=== PATIENT | female | born 1980 | race Caucasian/White ===

== ENCOUNTER 2016-08-01 09:14 | Emergency (ER) | payer SELFPAY ==
[2016-08-01 09:27] VITALS: BP 150/98
--- NOTE | 2016-08-01 09:55 | ER Document Report ---
ED Oral Problem - General Chief Complaint: Toothache Stated Complaint: TOOTH PAIN Time seen by provider: 09:51 Mode of Arrival: Ambulatory Information source: Patient Notes: This is a 36-year-old female with a history of diabetes presents to the emergency room with right lower dental pain. Patient states she cracked her tooth several days ago. Patient denies fever. TRAVEL OUTSIDE OF THE [place] IN LAST 30 DAYS: No - HPI Patient complains to provider of: Toothache Onset: Last week Onset: Gradual Quality of pain: Dull Severity: Moderate Pain Level: 2 Context: Fractured tooth Associated symptoms: denies: Chills, Fever Relieved by: Nothing Similar symptoms previously: No Recently seen / treated by doctor/dentist: No - Related Data Allergies/Adverse Reactions: Penicillins Allergy (Verified 08/01/16 09:24) Past Medical History - General Information source: Patient - Social History Smoking Status: Current Every Day Smoker Cigarette use (# per day): Yes - heparin per day Chew tobacco use (# tins/day): No Frequency of alcohol use: None Drug Abuse: None Lives with: Family Family History: Reviewed & Not Pertinent Patient has suicidal ideation: No Patient has homicidal ideation: No - Past Medical History Cardiac Medical History: Reports: None Pulmonary Medical History: Reports: None Denies: Hx Tuberculosis EENT Medical History: Reports: None Neurological Medical History: Denies: Hx Seizures Endocrine Medical History: Reports: Hx Diabetes Mellitus Type 1 Renal/ Medical History: Denies: Hx Peritoneal Dialysis Malignancy Medical History: Reports: None GI Medical History: Reports: None Musculoskeltal Medical History: Reports None Skin Medical History: Reports None Psychiatric Medical History: Reports: Hx Attention Deficit Hyperactivity Disorder, Hx Bipolar Disorder, Hx Depression Denies: Hx Post Traumatic Stress Disorder, Hx Schizophrenia Traumatic Medical History: Reports: Hx Fractures - 5th toe right foot Past Surgical History: Reports: Hx Appendectomy, Hx Tubal Ligation. Denies: Hx Pacemaker - Immunizations Hx Diphtheria, Pertussis, Tetanus Vaccination: Yes Hx Pneumococcal Vaccination: 06/09/08 Review of Systems - Review of Systems Constitutional: denies: Chills, Fever EENT: See HPI Cardiovascular: No symptoms reported Respiratory: No symptoms reported Gastrointestinal: No symptoms reported Genitourinary: No symptoms reported Female Genitourinary: No symptoms reported Musculoskeletal: No symptoms reported Skin: No symptoms reported Hematologic/Lymphatic: No symptoms reported Neurological/Psychological: No symptoms reported Physical Exam - Vital signs Vitals: Temp Pulse Resp BP Pulse Ox 98.5 F 90 18 150/98 H 98 08/01/16 09:26 08/01/16 09:26 08/01/16 09:26 08/01/16 09:26 08/01/16 09:26 - Notes Notes: Physical exam: GENERAL: 36-year-old female, alert and oriented 3, no acute distress. HEAD: Atraumatic, normocephalic. EYES: Pupils equal round and reactive to light, extraocular movements intact, sclera anicteric, conjunctiva are normal. ENT: Patient does have right lower premolar fractured tooth with dental caries. The area is tender. Moist mucous membranes. NECK: Normal range of motion, supple without lymphadenopathy, no tenderness in the submental or submandibular spaces. No evidence of infection lower down in the next spaces. LUNGS: Breath sounds clear to auscultation bilaterally and equal. No wheezes rales or rhonchi. HEART: Regular rate and rhythm without murmurs, rubs or gallops. NEUROLOGICAL: Cranial nerves II through XII grossly intact. Normal speech, normal gait. PSYCH: Normal mood, normal affect. SKIN: Warm, Dry, normal turgor, no rashes or lesions noted. Course - Vital Signs Vital signs: Temp Pulse Resp BP Pulse Ox 98.5 F 90 18 150/98 H 98 08/01/16 09:26 08/01/16 09:26 08/01/16 09:40 08/01/16 09:26 08/01/16 09:26 Discharge - Discharge Clinical Impression: dental caries Condition: Stable Disposition: HOME, SELF-CARE Instructions: Clindamycin ([facility]), Oral Narcotic Medication ([facility]), Toothache ([facility] ) Additional Instructions: Recommendations: Follow-up as planned at [facility] this . Start the antibiotics this morning. Take the pain medicine as needed: See the instruction sheet for narcotics. Return to the emergency room for worsening pain, difficulty swallowing, shortness of breath or any swelling about the mouth or neck. Prescriptions: Clindamycin HCl 300 mg PO Q6 #28 capsule Oxycodone HCl/Acetaminophen [Percocet 5-325 mg Tablet] 1 - 2 tab PO ASDIR PRN # 25 tablet PRN Reason:
== END 2016-08-01 09:55 | disposition home or self-care (01) ==
LOC: ER 09:14
DX: K02.9 Dental caries, unspecified (principal); K08.89 Other specified disorders of teeth and supporting structures; F17.210 Nicotine dependence, cigarettes, uncomplicated
CPT/HCPCS: 99282

== ENCOUNTER 2016-08-15 09:49 | Emergency (ER) | payer SELFPAY ==
--- NOTE | 2016-08-15 10:06 | ER Document Report ---
ED Medical Screen (RME) - General Chief Complaint: Chest Wall Pain Stated Complaint: BODY PAIN Mode of Arrival: Ambulatory Information source: Patient Notes: Patient presents to the emergency department with chest wall pain. Patient reports she hit herself in the chest with bolt cutters on Monday. She reports since that time her chest hurts when she twists her arms. She denies fever vomiting diarrhea but reports some nausea. Patient is a diabetic and reports her sugars have been running high the last Accu-Chek was 182. She has been taking Motrin without relief of symptoms for pain. I have greeted and performed a rapid initial assessment of this patient. A comprehensive ED assessment and evaluation of the patient, analysis of test results and completion of the medical decision making process will be conducted by additional ED providers. TRAVEL OUTSIDE OF THE [place] IN LAST 30 DAYS: No - Related Data Allergies/Adverse Reactions: Penicillins Allergy (Verified 08/15/16 09:59) Past Medical History - Social History Chew tobacco use (# tins/day): No Frequency of alcohol use: None Drug Abuse: None Pulmonary Medical History: Denies: Hx Tuberculosis Neurological Medical History: Denies: Hx Seizures Endocrine Medical History: Reports: Hx Diabetes Mellitus Type 1 Renal/ Medical History: Denies: Hx Peritoneal Dialysis Psychiatric Medical History: Reports: Hx Attention Deficit Hyperactivity Disorder, Hx Bipolar Disorder, Hx Depression Denies: Hx Post Traumatic Stress Disorder, Hx Schizophrenia Traumatic Medical History: Reports: Hx Fractures - 5th toe right foot Past Surgical History: Reports: Hx Appendectomy, Hx Tubal Ligation. Denies: Hx Pacemaker - Immunizations Hx Diphtheria, Pertussis, Tetanus Vaccination: Yes Physical Exam - Vital signs Vitals: Temp Pulse Resp BP Pulse Ox 97.9 F 112 H 18 120/83 100 08/15/16 09:57 08/15/16 09:57 08/15/16 09:57 08/15/16 09:57 08/15/16 09:57 Course - Vital Signs Vital signs: Temp Pulse Resp BP Pulse Ox 97.9 F 112 H 18 120/83 100 08/15/16 10:00 08/15/16 10:00 08/15/16 10:00 08/15/16 10:00 08/15/16 10:00
[2016-08-15] MEDS ORDERED: TRAMADOL HCL 50 MG TABLET PO ONE (11:02)
[2016-08-15] MEDS ORDERED: LIDOCAINE 5% (700 MG) TRANSDERMAL ADH..PATCH TP ONE (11:02)
--- NOTE | 2016-08-15 11:04 | ER Document Report ---
ED General - General Chief Complaint: Chest Wall Pain Stated Complaint: BODY PAIN Mode of Arrival: Ambulatory TRAVEL OUTSIDE OF THE [place] IN LAST 30 DAYS: No - HPI Patient complains to provider of: chest wall pain Notes: Patient coming in for chest wall pain. Patient states approximately one to 2 days ago she was using a cane cutter when it hit her in the chest. Patient states now pain has increased hurts when she moves hurts when she lays flat. Denies any other trauma denies any other fevers chills nausea vomiting diarrhea - Related Data Allergies/Adverse Reactions: Penicillins Allergy (Verified 08/15/16 09:59) Past Medical History - General Information source: Patient - Social History Smoking Status: Unknown if Ever Smoked Chew tobacco use (# tins/day): No Frequency of alcohol use: None Drug Abuse: None Family History: Reviewed & Not Pertinent Patient has suicidal ideation: No Patient has homicidal ideation: No Pulmonary Medical History: Denies: Hx Tuberculosis Neurological Medical History: Denies: Hx Seizures Endocrine Medical History: Reports: Hx Diabetes Mellitus Type 1 Renal/ Medical History: Denies: Hx Peritoneal Dialysis Psychiatric Medical History: Reports: Hx Attention Deficit Hyperactivity Disorder, Hx Bipolar Disorder, Hx Depression Denies: Hx Post Traumatic Stress Disorder, Hx Schizophrenia Traumatic Medical History: Reports: Hx Fractures - 5th toe right foot Past Surgical History: Reports: Hx Appendectomy, Hx Tubal Ligation. Denies: Hx Pacemaker - Immunizations Hx Diphtheria, Pertussis, Tetanus Vaccination: Yes Hx Pneumococcal Vaccination: 06/09/08 Review of Systems - Review of Systems Constitutional: No symptoms reported EENT: No symptoms reported Cardiovascular: Other - Chest wall pain Respiratory: No symptoms reported Gastrointestinal: No symptoms reported Genitourinary: No symptoms reported Female Genitourinary: No symptoms reported Musculoskeletal: No symptoms reported Skin: No symptoms reported Hematologic/Lymphatic: No symptoms reported Neurological/Psychological: No symptoms reported Physical Exam - Vital signs Vitals: Temp Pulse Resp BP Pulse Ox 97.9 F 112 H 18 120/83 100 08/15/16 09:57 08/15/16 09:57 08/15/16 09:57 08/15/16 09:57 08/15/16 09:57 Interpretation: Normal - General General appearance: Appears well, Alert - HEENT Head: Normocephalic, Atraumatic Eyes: Normal Pupils: PERRL - Respiratory Respiratory status: No respiratory distress Chest status: Tender - Tenderness to palpation of the sternum there is no bruising contusions or signs of trauma Breath sounds: Normal Chest palpation: Normal - Cardiovascular Rhythm: Regular Heart sounds: Normal auscultation Murmur: No - Abdominal Inspection: Normal Distension: No distension Bowel sounds: Normal Tenderness: Nontender Organomegaly: No organomegaly - Back Back: Normal, Nontender - Extremities General upper extremity: Normal inspection, Nontender, Normal color, Normal ROM , Normal temperature General lower extremity: Normal inspection, Nontender, Normal color, Normal ROM , Normal temperature, Normal weight bearing. No: Mariana's sign - Neurological Neuro grossly intact: Yes Cognition: Normal Orientation: AAOx4 Lilly Coma Scale Eye Opening: Spontaneous Lilly Coma Scale Verbal: Oriented Rolo Coma Scale Motor: Obeys Commands Rolo Coma Scale Total: 15 Speech: Normal Motor strength normal: LUE, RUE, LLE, RLE Sensory: Normal - Psychological Associated symptoms: Normal affect, Normal mood - Skin Skin Temperature: Warm Skin Moisture: Dry Skin Color: Normal Course - Re-evaluation Re-evalutation: 08/15/16 17:55 Patient has a negative chest x-ray for fracture negative EKG at bedside ultrasound was performed showing no pericardial effusion. More likely patient has a chest wall contusion will be discharged home - Vital Signs Vital signs: Temp Pulse Resp BP Pulse Ox 97.6 F 90 16 115/75 100 08/15/16 11:13 08/15/16 11:13 08/15/16 11:13 08/15/16 11:13 08/15/16 11:13 - Laboratory Laboratory results interpreted by me: 08/15/16 10:05 POC Glucose 176 H Discharge - Discharge Clinical Impression: Chest wall pain Chest wall contusion Qualifiers: Encounter type: initial encounter Laterality: unspecified laterality Qualified Code(s): S20.219A - Contusion of unspecified front wall of thorax, initial encounter Condition: Good Disposition: HOME, SELF-CARE Instructions: Anti-Inflammatory Medication ([facility]), Chest Wall Pain ([facility]), Oral Narcotic Medication ([facility]) Additional Instructions: If you received good pain relief with the Lidoderm patch provide here in the ER you may try [id number] options please discuss this with your pharmacist. Take other pain medication as prescribed. You may also continue to take Tylenol Motrin for pain control. Prescriptions: Tramadol HCl [Ultram 50 mg Tablet] 50 mg PO ASDIR PRN #20 tablet PRN Reason: Forms: Return to Work
[2016-08-15 11:15] VITALS: BP 115/75
--- NOTE | 2016-08-15 13:42 | EKG REPORT ---
SEVERITY:- ABNORMAL ECG - SINUS RHYTHM LEFT ATRIAL ABNORMALITY PROBABLE LEFT VENTRICULAR HYPERTROPHY : Confirmed by: Florentino Crockett 15-Aug-2016 13:41:24
== END 2016-08-15 11:14 | disposition home or self-care (01) ==
LOC: ER 09:49
DX: S20.219A Contusion of unspecified front wall of thorax, initial encounter (principal); R07.89 Other chest pain; W22.8XXA Striking against or struck by other objects, initial encounter; E10.9 Type 1 diabetes mellitus without complications; Z88.0 Allergy status to penicillin; Z98.51 Tubal ligation status
CPT/HCPCS: 71020; 82962; 93005; 93010; 99285

== ENCOUNTER 2016-09-17 09:56 | Emergency (ER) | payer SELFPAY ==
[2016-09-17] MEDS ORDERED: BUPIVACAINE HCL 0.5 % INJ/PF 30 ML SDV INJ ONE (10:24)
[2016-09-17] MEDS ORDERED: NAPROXEN 250 MG TABLET PO ONE (10:25)
[2016-09-17] MEDS ORDERED: HYDROCODONE/ACETAMINOPHEN 5-325 MG TABLET PO ONE (10:25)
--- NOTE | 2016-09-17 11:19 | ER Document Report ---
ED Oral Problem - General Chief Complaint: Toothache Stated Complaint: TOOTH PAIN Mode of Arrival: Ambulatory Information source: Patient Notes: 36-year-old female presents to the emergency department complaining of right lower dental pain and swelling. Patient reports has decayed tooth that has been causing her pain. Reports saw her dentist 5 days ago who placed her on course of clindamycin and is scheduled for dental extraction next week. Reports pain has worsened and has noted some localized swelling to the area over the last 2 days. Reports called her dental provider today but office was closed so came to the ED. Denies fever, drainage, difficulty breathing or swallowing. TRAVEL OUTSIDE OF THE [place] IN LAST 30 DAYS: No - HPI Patient complains to provider of: Swelling of jaw, Toothache Onset: Gradual Quality of pain: Achy Severity: Moderate Pain Level: 4 Swollen jaw/face: Mild Associated symptoms: Dental decay, Toothache. denies: Chills, Difficulty speaking, Drainage, Drooling, Fever, Tongue swelling, Unable to swallow Similar symptoms previously: Yes Recently seen / treated by doctor/dentist: Yes - Related Data Allergies/Adverse Reactions: Penicillins Allergy (Verified 08/15/16 09:59) Past Medical History - General Information source: Patient - Social History Smoking Status: Current Every Day Smoker Frequency of alcohol use: Occasional Drug Abuse: None Lives with: Family Family History: Reviewed & Not Pertinent Patient has suicidal ideation: No Patient has homicidal ideation: No Pulmonary Medical History: Denies: Hx Tuberculosis Neurological Medical History: Denies: Hx Seizures Endocrine Medical History: Reports: Hx Diabetes Mellitus Type 1 Renal/ Medical History: Denies: Hx Peritoneal Dialysis Psychiatric Medical History: Reports: Hx Attention Deficit Hyperactivity Disorder, Hx Bipolar Disorder, Hx Depression Denies: Hx Post Traumatic Stress Disorder, Hx Schizophrenia Traumatic Medical History: Reports: Hx Fractures - 5th toe right foot Past Surgical History: Reports: Hx Appendectomy, Hx Tubal Ligation. Denies: Hx Pacemaker - Immunizations Hx Diphtheria, Pertussis, Tetanus Vaccination: Yes Hx Pneumococcal Vaccination: 06/09/08 Review of Systems - Review of Systems Constitutional: No symptoms reported EENT: See HPI Cardiovascular: No symptoms reported Respiratory: No symptoms reported Gastrointestinal: No symptoms reported Genitourinary: No symptoms reported Female Genitourinary: No symptoms reported Musculoskeletal: No symptoms reported Skin: No symptoms reported Hematologic/Lymphatic: No symptoms reported Neurological/Psychological: No symptoms reported -: Yes All other systems reviewed and negative Physical Exam - Vital signs Vitals: Temp Pulse Resp BP Pulse Ox 98.3 F 110 H 16 128/94 H 98 09/17/16 10:01 09/17/16 10:01 09/17/16 10:01 09/17/16 10:01 09/17/16 10:01 - General General appearance: Appears well, Alert In distress: None - HEENT Head: Normocephalic, Atraumatic Eyes: Normal Eyelashes: Normal Pupils: PERRL Ears: Normal External canal: Normal Tympanic membrane: Normal Sinus: Normal Nasal: Normal Mouth/Lips: Caries. No: Normal, Angioedema, Laceration, Lesions, Other Mucous membranes: Normal, Moist Teeth diagram: 1 - Tenderness to palpation, mild localized swelling with slight fluctuance to lateral aspect/periapical area. No drainage. No swelling to medial area. Pharynx: Normal. No: Blood in hypopharynx, Erythema, Exudate, Peritonsillar abscess, Post nasal drainage, Retropharyngeal abscess, Tonsillar hypertrophy, Uvular edema, Potential airway comprom., Other Neck: Normal. No: Anterior cervical chain, Posterior cervical chain, Lymphadenopathy, Meningismus, Subcutaneous emphysema - Respiratory Respiratory status: No respiratory distress Chest status: Nontender Breath sounds: Normal Chest palpation: Normal - Cardiovascular Rhythm: Regular Heart sounds: Normal auscultation Murmur: No Pulses: Normal: Radial Normal capillary refill: Yes - Neurological Neuro grossly intact: Yes Cognition: Normal Orientation: AAOx4 Rolo Coma Scale Eye Opening: Spontaneous Blachly Coma Scale Verbal: Oriented Blachly Coma Scale Motor: Obeys Commands Blachly Coma Scale Total: 15 Speech: Normal Motor strength normal: LUE, RUE, LLE, RLE Sensory: Normal - Skin Skin Temperature: Warm Skin Moisture: Dry Skin Color: Normal Course - Re-evaluation Re-evalutation: 09/17/16 11:21 Patient hemodynamically stable, in no distress, afebrile, nontoxic. Physical exam findings suggestive of localized small periapical abscess. No trismus, suggestion of Immanuel's angina or significant deep space/tissue infection at this time. Abscess I&D. Patient appears stable for discharge and agrees with home care, follow-up, and strict ED return precautions. - Vital Signs Vital signs: Temp Pulse Resp BP Pulse Ox 98.4 F 83 20 124/78 98 09/17/16 11:45 09/17/16 11:45 09/17/16 11:45 09/17/16 11:45 09/17/16 11:45 Procedures - Incision and Drainage Right Lower Face Time completed: 11:05 - Dental Abscess Type: Simple Anesthetic type: 0.5% Bupivacaine mL's of anesthetic: 2 Blade size: 11 Incision Method: Incision made by scalpel - lateral aspect Amount/type of drainage: moderate amount purulent/sanguineous drainage Discharge - Discharge Clinical Impression: Dental infection Condition: Stable Disposition: HOME, SELF-CARE Additional Instructions: Dental Infection or Abscess You have an infection, perhaps an abscess (pus formation) of the gum around one of your teeth, which is probably decayed. If there is an abscess, it may drain on its own or it may need to be opened or lanced. Severe swelling or drainage around a tooth usually means a deep dental abscess which usually requires evaluation and treatment by a dentist or oral surgeon. Antibiotics may be prescribed while awaiting dental treatment. If you develop high fever with chills, worsening pain, or increasing swelling in the area, see a dentist or oral surgeon immediately or return to the Emergency Department immediately. TOOTHACHE: Your pain is due to dental decay. The tooth must be repaired in order for you to feel better. You will, therefore, be referred to a dentist. We do not have dentists on the staff at [facility]. Severe swelling or drainage around a tooth usually means a dental abscess. This also requires evaluation and treatment by the dentist, but antibiotics may be prescribed while awaiting dental treatment. You should be rechecked immediately if you develop major swelling of the face, increasing pain, a lump in the jaw or gums, headache, difficulty swallowing, or fever. ORAL NARCOTIC MEDICATION: You have been given a prescription for pain control. This medication is a narcotic. It's best taken with food, as nausea can result if taken on an empty stomach. Don't operate machinery or drive within six hours of taking this medication. Do not combine this medicine with alcohol, or with any medication which can cause sedation (such as cold tablets or sleeping pills) unless you get permission from the physician. Narcotics tend to cause constipation. If possible, drink plenty of fluids and eat a diet high in fiber and fruits. Please be aware that prescription narcotics also have the potential for abuse. People become addicted to these medications because of the general sense of wellbeing that they induce. This feeling along with a significant reduction in tension, anxiety, and aggression provides a stimulating seductive quality to these drugs. Once your pain is under control, we encourage you to discard your unused narcotics. Anti-Inflammatory Medication You have received a prescription for an antiinflammatory agent. This is an excellent, safe drug for pain control. In addition, it has potent antiinflammatory effects which are beneficial, especially in the treatment of injuries, arthritis, or tendonitis. It's best to take this medicine with food. Persons with ulcer disease or allergy to aspirin should notify their physician of this before taking this drug. Take the medication exactly as prescribed. Don't take additional doses unless instructed to do so by your doctor. If you develop wheezing, shortness of breath, hives, faintness, stomach pain, vomiting, or dark black stools, return for re-evaluation at once. FOLLOW-UP CARE: Continue taking your previously prescribed Clindamycin as directed by your dentist. Follow-up with your dentist on Monday as discussed. Monitor closely and maintain your blood sugar under control. Return to the Emergency Department for any increased swelling, difficulty swallowing, or any other worsening symptoms or concerns. Prescriptions: Hydrocodone/Acetaminophen [Blanchard 5-325 mg Tablet] 1 tab PO Q6H PRN #8 tablet PRN Reason: Naproxen 500 mg PO BIDP PRN #10 tablet PRN Reason: Forms: Return to Work
[2016-09-17 11:46] VITALS: BP 124/78
== END 2016-09-17 11:40 | disposition home or self-care (01) ==
LOC: ER 09:56
PROC: 0H91XZZ Drainage of Face Skin, External Approach (ICD-10-PCS; principal; 2016-09-17)
DX: K04.7 Periapical abscess without sinus (principal); K08.89 Other specified disorders of teeth and supporting structures; R22.0 Localized swelling, mass and lump, head; F17.200 Nicotine dependence, unspecified, uncomplicated
CPT/HCPCS: 99282

== ENCOUNTER 2018-05-02 09:39 | Emergency (ER) | payer SELFPAY ==
[2018-05-02] MEDS ORDERED: NORMAL SALINE 1000 ML 1,000 ML IV ONE (10:11)
--- NOTE | 2018-05-02 10:12 | ER Document Report ---
ED Medical Screen (RME) - General Chief Complaint: High Blood Sugar Stated Complaint: CONGESTION Time Seen by Provider: 05/02/18 10:05 Mode of Arrival: Ambulatory Information source: Patient Notes: Patient presents complaining of sinus congestion for the past 2 weeks with headache pain. Patient also reports cough for the past week and has since developed right-sided chest pain that radiates through to her back over the past 3 days. Patient does report a history of diabetes and states that her blood sugars have been running over 400 and complains of nausea. I have greeted and performed a rapid initial assessment of this patient. A comprehensive ED assessment and evaluation of the patient, analysis of test results and completion of the medical decision making process will be conducted by additional ED providers. TRAVEL OUTSIDE OF THE [place] IN LAST 30 DAYS: No - Related Data Allergies/Adverse Reactions: Penicillins Allergy (Verified 05/02/18 09:40) Past Medical History Pulmonary Medical History: Denies: Hx Tuberculosis Neurological Medical History: Denies: Hx Seizures Endocrine Medical History: Reports: Hx Diabetes Mellitus Type 1 Renal/ Medical History: Denies: Hx Peritoneal Dialysis Psychiatric Medical History: Reports: Hx Attention Deficit Hyperactivity Disorder, Hx Bipolar Disorder, Hx Depression Denies: Hx Post Traumatic Stress Disorder, Hx Schizophrenia Traumatic Medical History: Reports: Hx Fractures - 5th toe right foot Past Surgical History: Reports: Hx Appendectomy, Hx Tubal Ligation. Denies: Hx Pacemaker - Immunizations Hx Diphtheria, Pertussis, Tetanus Vaccination: Yes Physical Exam - Vital signs Vitals: Temp Pulse Resp BP Pulse Ox 98.2 F 102 H 18 113/76 97 05/02/18 09:53 05/02/18 09:53 05/02/18 09:53 05/02/18 09:53 05/02/18 09:53 - Respiratory Respiratory status: No respiratory distress Chest status: Pain with cough, Pain with deep breathing Breath sounds: Nonproductive cough Chest palpation: Normal Course - Vital Signs Vital signs: Temp Pulse Resp BP Pulse Ox 98.2 F 102 H 18 113/76 97 05/02/18 09:53 05/02/18 09:53 05/02/18 09:53 05/02/18 09:53 05/02/18 09:53
[2018-05-02 11:12] LABS: VENOUS BLOOD BASE EXCESS 2.2 mmol/L; VENOUS BLOOD HCO3 25.6 mmol/L (20-32); VENOUS BLOOD PCO2 36.3 mmHg (35-63); VENOUS BLOOD PH 7.47 (7.30-7.42)
[2018-05-02 11:16] LABS: ABSOLUTE BASOPHILS # (AUTO) 0.1 10^3/uL (0.0-0.2); ABSOLUTE EOSINOPHILS # (AUTO) 0.4 10^3/uL (0.0-0.6); ABSOLUTE MONOCYTES (AUTO) 0.9 10^3/uL (0.1-1.4); ABSOLUTE NEUT (AUTO) 10.6 10^3/uL (1.7-8.2); BASOPHILS % (AUTO) 0.5 % (0-2); EOSINOPHILS % (AUTO) 2.8 % (0-6); HEMATOCRIT 38.2 % (36.0-47.0); HEMOGLOBIN 13.1 g/dL (12.0-15.5); LYMPHOCYTES % (AUTO) 24.9 % (13-45); MEAN CORPUSCULAR HEMOGLOBIN 31.4 pg (27.0-33.4); MEAN CORPUSCULAR HGB CONC 34.2 g/dL (32.0-36.0); MEAN CORPUSCULAR VOLUME 92 fl (80-97); MONOCYTES % (AUTO) 5.4 % (3-13); PLATELET COUNT 351 10^3/uL (150-450); RED BLOOD COUNT 4.17 10^6/uL (3.72-5.28); RED CELL DISTRIBUTION WIDTH 13.2 % (11.5-14.0); SEGMENTED NEUTROPHILS % (AUTO) 66.4 % (42-78); TOTAL CELLS COUNTED % (AUTO) 100 %; WHITE BLOOD COUNT 15.9 10^3/uL (4.0-10.5)
--- NOTE | 2018-05-02 11:22 | RADIOLOGY REPORT (SQ) ---
EXAM DESCRIPTION: CHEST 2 VIEWS COMPLETED DATE/TIME: 05/02/2018 11:13 am REASON FOR STUDY: cough, cp COMPARISON: 2016. TECHNIQUE: Frontal and lateral radiographic views of the chest acquired. NUMBER OF VIEWS: Two view. LIMITATIONS: None. FINDINGS: LUNGS AND PLEURA: No opacities, masses or pneumothorax. No pleural effusion. MEDIASTINUM AND HILAR STRUCTURES: No masses or contour abnormalities. HEART AND VASCULAR STRUCTURES: Heart normal size. No evidence for failure. BONES: No acute findings. HARDWARE: None in the chest. OTHER: No other significant finding. IMPRESSION: NO SIGNIFICANT RADIOGRAPHIC FINDING IN THE CHEST. TECHNICAL DOCUMENTATION: JOB ID: [id number] [employer]- All Rights Reserved Reading location - IP/workstation name: [email or web address]
[2018-05-02 11:26] LABS: ALANINE AMINOTRANSFERASE 32 U/L (9-52); ALBUMIN 4.1 g/dL (3.5-5.0); ALKALINE PHOSPHATASE 86 U/L (38-126); ANION GAP 12 (5-19); ASPARTATE AMINO TRANSFERASE 37 U/L (14-36); BILIRUBIN,DIRECT 0.3 mg/dL (0.0-0.4); BILIRUBIN,TOTAL 0.5 mg/dL (0.2-1.3); BLOOD UREA NITROGEN 16 mg/dL (7-20); CARBON DIOXIDE 24 mmol/L (22-30); CHLORIDE 101 mmol/L (98-107); GLUCOSE 201 mg/dL (75-110); POTASSIUM 4.3 mmol/L (3.6-5.0); SODIUM 136.9 mmol/L (137-145); TOTAL PROTEIN 6.9 g/dL (6.3-8.2)
[2018-05-02 11:41] LABS: APPEARANCE,URINE CLEAR; BILIRUBIN,URINE NEGATIVE (NEGATIVE); COLOR,URINE STRAW; GLUCOSE, URINE >=500 mg/dL (NEGATIVE); KETONES,URINE NEGATIVE (NEGATIVE); LEUKOCYTE ESTERASE,URINE NEGATIVE (NEGATIVE); NITRITE,URINE NEGATIVE (NEGATIVE); PROTEIN,URINE NEGATIVE (NEGATIVE); URINE SPECIFIC GRAVITY 1.024; UROBILINOGEN,URINE NEGATIVE mg/dL (<2.0)
[2018-05-02 11:58] LABS: URINE AMPHETAMINES SCREEN NEGATIVE; URINE BARBITURATES SCREEN NEGATIVE; URINE BENZODIAZEPINES SCREEN NEGATIVE; URINE COCAINE SCREEN NEGATIVE; URINE MARIJUANA (THC) SCREEN NEGATIVE; URINE METHADONE SCREEN NEGATIVE; URINE PHENCYCLIDINE SCREEN NEGATIVE
--- NOTE | 2018-05-02 13:03 | EKG REPORT ---
SEVERITY:- NORMAL ECG - SINUS RHYTHM : Confirmed by: Fuad Meier MD 02-May-2018 13:02:15
[2018-05-02] MEDS ORDERED: CEFTRIAXONE 1 GM/D5W RTU 1 GM/50 ML RTUPB IV ONE (13:15)
--- NOTE | 2018-05-02 13:41 | ER Document Report ---
ED Respiratory Problem - General Chief Complaint: High Blood Sugar Stated Complaint: CONGESTION Time Seen by Provider: 05/02/18 10:05 Mode of Arrival: Ambulatory Information source: Patient Notes: Patient is a 38-year-old type I diabetic who comes emergency room complaining of 2 weeks of congestion runny nose with sinus pain and pressure that also has transformed itself into a Hacche cough. She states she has some right-sided chest discomfort when she takes a deep breath when she moves her the area is touched. She is tried taking Delsym, DayQuil, Tylenol Cold and flu. As stated she is a type I diabetic and sees Dr. Brad sewell in [place]. She was told that if her blood sugars exceed more than 400 for more than 2 days that she most likely has an infection and she is to go to the hospital to get it checked out. She states she is felt warm and she is chilled severely over the last 3-4 days. She smokes approximately 5-6 cigarettes a day. She denies any dysuria. Has a history of hypertension, the type 1 diabetes. She does not use an insulin pump she does insulin coverage. She also states that when she lays down she is coughing very badly. And feels like she has fluid in her head. When she rotates from one side to the other it feels like the fluid moves. She also has congestion in bilateral nostrils. TRAVEL OUTSIDE OF THE [place] IN LAST 30 DAYS: No - HPI Patient complains to provider of: Chest pain, Cough, Short of breath Onset: Other - 2 weeks for the last week being the worst. Duration: Continuous, Worse/persistent Initiating Event: URI Quality of pain: Achy, Cramping, Sharp Severity: Moderate Pain Level: 3 Short of Breath: Mild Chest pain/discomfort: Worse with deep breaths Cough: Nonproductive Sputum amount: Small Sputum color: Yellow Sputum consistency: Thick Associated symptoms: Allergy/hay fever, Chills, Congestion, Cough, Difficulty breathing, Facial pain, Fever, Headache, PND, Runny nose, Sinus pain/pressure, Short of breath, Sore Throat Worsened by: Deep breathing palpation Similar symptoms previously: No Recently seen / treated by doctor: No - Related Data Allergies/Adverse Reactions: Penicillins Allergy (Verified 05/02/18 11:12) Past Medical History - Social History Smoking Status: Current Every Day Smoker Cigarette use (# per day): Yes - Quarter pack of cigarettes a day Chew tobacco use (# tins/day): No Smoking Education Provided: Yes Frequency of alcohol use: None Drug Abuse: None Family History: Reviewed & Not Pertinent Patient has suicidal ideation: No Patient has homicidal ideation: No - Past Medical History Cardiac Medical History: Reports: Hx Hypertension Pulmonary Medical History: Denies: Hx Tuberculosis Neurological Medical History: Denies: Hx Seizures Endocrine Medical History: Reports: Hx Diabetes Mellitus Type 1 Renal/ Medical History: Denies: Hx Peritoneal Dialysis Psychiatric Medical History: Reports: Hx Attention Deficit Hyperactivity Disorder, Hx Bipolar Disorder, Hx Depression Denies: Hx Post Traumatic Stress Disorder, Hx Schizophrenia Traumatic Medical History: Reports: Hx Fractures - 5th toe right foot Past Surgical History: Reports: Hx Appendectomy, Hx Tubal Ligation. Denies: Hx Pacemaker - Immunizations Hx Diphtheria, Pertussis, Tetanus Vaccination: Yes Hx Pneumococcal Vaccination: 06/09/08 Review of Systems - Review of Systems Constitutional: Fever, Weakness EENT: Nose pain, Nose congestion, Nose discharge, Sinus pressure, Sinus discharge, Throat pain Cardiovascular: No symptoms reported Respiratory: See HPI, Cough, Hurts to breathe, Short of breath Gastrointestinal: No symptoms reported Genitourinary: No symptoms reported Female Genitourinary: No symptoms reported Musculoskeletal: No symptoms reported Skin: No symptoms reported Hematologic/Lymphatic: No symptoms reported Neurological/Psychological: No symptoms reported -: Yes All other systems reviewed and negative Physical Exam - Vital signs Vitals: Temp Pulse Resp BP Pulse Ox 98.2 F 102 H 18 113/76 97 05/02/18 09:53 05/02/18 09:53 05/02/18 09:53 05/02/18 09:53 05/02/18 09:53 Interpretation: Tachycardic - Notes Notes: PHYSICAL EXAMINATION: GENERAL: Patient is a well-nourished well-developed 38-year-old female who is in no apparent distress on physical exam today. Although she does appear to be somewhat ill-appearing she does not look seriously ill. HEAD: Atraumatic, normocephalic. EYES: Pupils equal round and reactive to light, extraocular movements intact, conjunctiva are normal. ENT: Examination head and upper airway showed nasal mucosa to be moderately erythematous and edematous with some yellowish rhinorrhea. She also has bilateral nasal congestion. Also noted frontal and maxillary sinus tenderness to palpation with the maxillary being greater than the frontal's. Bilateral TMs I have some cerumen but do not obstruct the view of the TMs. The TMs appear to be bulging with mild air-fluid levels as well. There is mild erythema surrounding the TM on the right. Further investigation examination shows that the oral cavity has posterior pharynx that is moderate amount of erythema no exudate with bilateral tonsillar enlargement. There is also the uvula being midline with erythema no exudate. The airway is patent. NECK: Normal range of motion, supple without lymphadenopathy LUNGS: Auscultation patient's lungs show she has bilateral breath sounds breath sounds are moderately decreased throughout with a faint end expiratory wheeze. No rhonchi rales noted.. HEART: Tachycardic rate and rhythm without murmurs ABDOMEN: Soft, nontender, nondistended abdomen. No guarding, no rebound. No masses appreciated. Female : deferred Musculoskeletal: Normal range of motion, no pitting or edema. No cyanosis. NEUROLOGICAL Normal speech, normal gait. Normal sensory, motor exams PSYCH: Normal mood, normal affect. SKIN: Warm, Dry, normal turgor, no rashes or lesions noted. Course - Re-evaluation Re-evalutation: 05/02/18 13:45 Patient received a liter of fluids and afterwards felt much better. She was found to have an elevated white count of 59. She was not acidotic so there is no ketoacidosis. And with the fluids she improved substantially. Her arrival Accu-Chek was 245. She was running a low-grade temperature on triage. But since then has become afebrile. I have went in and discussed with patient the only abnormality was her elevated white count given that she has a very suspicious examination for the sinusitis. 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 I will place her on doxy and give her some Flonase as well as some Diflucan. - Vital Signs Vital signs: Temp Pulse Resp BP Pulse Ox 98.2 F 102 H 18 113/76 97 05/02/18 09:53 05/02/18 09:53 05/02/18 09:53 05/02/18 09:53 05/02/18 09:53 - Laboratory Result Diagrams: 05/02/18 10:48 05/02/18 10:48 Laboratory results interpreted by me: 05/02/18 05/02/18 05/02/18 10:34 10:48 10:48 WBC 15.9 H Absolute Neutrophils 10.6 H VBG pH Sodium 136.9 L Glucose 201 H POC Glucose 245 H AST 37 H Urine Glucose (UA) Urine Ascorbic Acid 05/02/18 05/02/18 10:48 11:17 WBC Absolute Neutrophils VBG pH 7.47 H Sodium Glucose POC Glucose AST Urine Glucose (UA) >=500 H Urine Ascorbic Acid 40 H Discharge - Discharge Clinical Impression: Sinusitis Qualifiers: Sinusitis location: unspecified location Chronicity: acute Recurrence: non- recurrent Qualified Code(s): J01.90 - Acute sinusitis, unspecified Condition: Good Disposition: HOME, SELF-CARE Instructions: Sinusitis ([facility]), Upper Respiratory Illness ([facility]) Additional Instructions: Home and rest. Use nasal saline 3-4 times a day to keep the nose moist and secretions then. Take all the antibiotics as well as all of the Diflucan. As we discussed normally we do not treat sinusitis with antibiotics however because you are a fragile type I diabetic and because your sugars have been running higher and this follows accordingly to what you are food prep worker is told you we will treated with the antibiotics this time. Should you spike a fever and does not control with ibuprofen and Tylenol need to return to ER for recheck. Do not your sugars get out of hand. We will also put you on some Flonase which should also help the localized area without raising her sugars much at all. Again return here for any concerns or problems. Prescriptions: Doxycycline Hyclate 100 mg PO BID #20 capsule Fluconazole [Diflucan] 150 mg PO ASDIR PRN #3 tablet PRN Reason: Fluticasone Propionate [Flonase Nasal [place] 50 Mcg/[place] 16 gm] 2 sprays NASL Q12 #1 inhaler Forms: Smoking Cessation Education, Return to Work Referrals: [facility] [NO LOCAL MD] - Follow up as needed
[2018-05-02 14:05] VITALS: BP 104/70
== END 2018-05-02 14:03 | disposition home or self-care (01) ==
LOC: ER 09:39
DX: J01.90 Acute sinusitis, unspecified (principal); E10.9 Type 1 diabetes mellitus without complications; R09.89 Other specified symptoms and signs involving the circulatory and respiratory systems; J34.89 Other specified disorders of nose and nasal sinuses; R05 Cough; F17.210 Nicotine dependence, cigarettes, uncomplicated; R09.81 Nasal congestion; R07.1 Chest pain on breathing; H61.23 Impacted cerumen, bilateral; R06.02 Shortness of breath; J02.9 Acute pharyngitis, unspecified; J35.1 Hypertrophy of tonsils; R09.82 Postnasal drip; R50.9 Fever, unspecified; R53.1 Weakness; R06.2 Wheezing; I10 Essential (primary) hypertension; Z88.0 Allergy status to penicillin
CPT/HCPCS: 93005; 99284; 96361; 96365; 36415; 87040; 82962; 85025; 81025; 80053; 81001; 80307; 82803; 71046; 93010; J7030; J0696

== ENCOUNTER 2018-11-13 09:17 | Emergency (ER) | payer BC ==
[2018-11-13] MEDS ORDERED: CLINDAMYCIN HCL 150 MG CAPSULE PO ONE ×2 (10:38)
[2018-11-13] MEDS ORDERED: ACETAMINOPHEN 325 MG TABLET PO ONE (10:38)
--- NOTE | 2018-11-13 10:44 | ER Document Report ---
HPI - HPI Patient complains to provider of: Tooth pain Time Seen by Provider: 11/13/18 10:30 Pain Level: 4 Context: Patient is a 38-year-old female type I diabetic controlled with an insulin pump, NovoLog presents to the emergency department with left lower tooth pain. Patient states she had left lower tooth pain for the last week. States she does have an appointment with her dentist on . States last time she took any analgesics was Motrin at 630 this morning. Patient states her blood sugar this morning was 182. Patient's denying any other complaints. Allergies: Penicillin - REPRODUCTIVE Reproductive: DENIES: : Past Medical History - General Information source: Patient - Social History Smoking Status: Current Every Day Smoker Family History: Reviewed & Not Pertinent - Past Medical History Cardiac Medical History: Reports: Hx Hypertension Pulmonary Medical History: Denies: Hx Tuberculosis Neurological Medical History: Denies: Hx Seizures Endocrine Medical History: Reports: Hx Diabetes Mellitus Type 1 Renal/ Medical History: Denies: Hx Peritoneal Dialysis Psychiatric Medical History: Reports: Hx Attention Deficit Hyperactivity Disorder, Hx Bipolar Disorder, Hx Depression Denies: Hx Post Traumatic Stress Disorder, Hx Schizophrenia Traumatic Medical History: Reports: Hx Fractures - 5th toe right foot Past Surgical History: Reports: Hx Appendectomy, Hx Tubal Ligation. Denies: Hx Pacemaker - Immunizations Hx Diphtheria, Pertussis, Tetanus Vaccination: Yes Hx Pneumococcal Vaccination: 06/09/08 Vertical Provider Document - CONSTITUTIONAL Agree With Documented VS: Yes Notes: GENERAL: Alert, interacts well. No acute distress. HEAD: Normocephalic, atraumatic. EYES: Pupils equal, round, and reactive to light. Extraocular movements intact. ENT: Oral mucosa moist, tongue midline. Multiple missing teeth noted, poor dentition throughout, tooth in question is #17, obviously fractured, surrounding gum erythema but no areas of fluctuance or induration noted. No Immanuel's angina noted. NECK: Full range of motion. Supple. Trachea midline. No lymphadenopathy ap preciated LUNGS: Clear to auscultation bilaterally, no wheezes, rales, or rhonchi. No respiratory distress. HEART: Regular rate and rhythm. No murmur ABDOMEN: Soft, non-tender. Non-distended. Bowel sounds present in all 4 quadrants. EXTREMITIES: Moves all 4 extremities spontaneously. No edema, normal radial and dorsalis pedis pulses bilaterally. No cyanosis. BACK: no cervical, thoracic, lumbar midline tenderness. No saddle anesthesia, normal distal neurovascular exam. NEUROLOGICAL: Alert and oriented x3. Normal speech. cranial nerves II through XII grossly intact PSYCH: Normal affect, normal mood. SKIN: Warm, dry, normal turgor. No rashes or lesions noted. - INFECTION CONTROL TRAVEL OUTSIDE OF THE [place] IN LAST 30 DAYS: No Course - Re-evaluation Re-evalutation: 11/13/18 10:42 Discussed with patient use of antibiotics, [id number] analgesics and follow-up appointment with her dentist. I discussed with patient that she should call her dentist office to see if they still want her there on as she is going to be on the antibiotic course. Patient appears nontoxic, well- hydrated, stable for discharge. Patient is driving herself. At this time will discharge with return precautions and follow-up recommendations. Verbal discharge instructions given a the bedside and opportunity for questions given. Medication warnings reviewed. Patient is in agreement with this plan and has verbalized understanding of return precautions and the need for primary care follow-up in the next 24-72 hours. This medical record was dictated with voice recognizing software. There may be grammatical, syntax errors that are unintended. - Vital Signs Vital signs: Temp Pulse Resp BP Pulse Ox 98.8 F 117 H 20 129/83 H 100 11/13/18 09:24 11/13/18 09:24 11/13/18 09:24 11/13/18 09:24 11/13/18 09:24 Discharge - Discharge Clinical Impression: Tooth pain Fractured tooth Qualifiers: Encounter type: initial encounter Fracture type: closed Qualified Code(s): S02.5XXA - Fracture of tooth (traumatic), initial encounter for closed fracture Condition: Stable Disposition: HOME, SELF-CARE Instructions: Clindamycin ([facility]), Toothache ([facility]) Additional Instructions: As we discussed you have been seen and treated in the emergency department for a toothache. I am going to place you on an antibiotic course. As we discussed it is my suggestion that you call your dentist today. Please let them know that you currently are on antibiotics as they may want to change her appointment. Please also continue to take hzys-[id number] analgesics like Tylenol Motrin for generalized pain. Drink plenty of fluids and get plenty of rest. Please return to the emergency room for any concerns. Prescriptions: Clindamycin HCl [Cleocin 150 mg Capsule] 450 mg PO Q8 7 Days capsule Forms: Return to Work
[2018-11-13 10:55] VITALS: BP 102/75
== END 2018-11-13 11:08 | disposition home or self-care (01) ==
LOC: ER 09:17
DX: S02.5XXA Fracture of tooth (traumatic), initial encounter for closed fracture (principal); X58.XXXA Exposure to other specified factors, initial encounter; E10.9 Type 1 diabetes mellitus without complications; F17.200 Nicotine dependence, unspecified, uncomplicated; Z79.4 Long term (current) use of insulin; Z96.41 Presence of insulin pump (external) (internal); Z98.51 Tubal ligation status
CPT/HCPCS: 99282

== ENCOUNTER → 2019-11-21 | Outpatient (CLI) | payer BC ==
--- NOTE | 2019-11-21 15:25 | RADIOLOGY REPORT (SQ) ---
EXAM DESCRIPTION: NM HIDA SCAN WITH CCK IMAGES COMPLETED DATE/TIME: 11/21/2019 2:58 pm REASON FOR STUDY: R10.11 RIGHT UPPER QUADRANT PAIN R10.11 RIGHT UPPER QUADRANT PAIN COMPARISON: None. RADIONUCLIDE AND DOSE: DOSAGE RADIONUCLIDE: 5 millicuries Tc99m Mebrofenin. DOSAGE CCK: 1.3 micrograms. DOSAGE MORPHINE: Not required. The route of agent administration: Intravenous TECHNIQUE: Serial imaging right upper quadrant up to 60 minutes following injection of radionuclide. CCK injected after gallbladder visualized. LIMITATIONS: None. FINDINGS: LIVER: Normal visualization without areas of photopenia. INTRAHEPATIC BILE DUCTS: Normal size and no delay in visualization. COMMON BILE DUCT: Normal without dilatation. GALLBLADDER: Normal visualization. Calculated ejection fraction of 75%. Normal range is greater th an 35%. PHYSICAL RESPONSE: Patients presenting complaint was reproduced. OTHER: No other significant finding. IMPRESSION: No evidence of biliary dyskinesis within the ejection fraction of 75%. However, patient 's symptoms were reproduced with CCK administration. TECHNICAL DOCUMENTATION: JOB ID: [id number] 2010 [employer]- All Rights Reserved Reading location - IP/workstation name: [email or web address]
== END ==
LOC: RAD 12:47
PROVIDERS: ATTEND Internal Medicine Gastroenterology
DX: R10.11 Right upper quadrant pain (principal)
CPT/HCPCS: 78227; J2805; A9537; Q9969

== ENCOUNTER 2020-06-03 13:37 | Emergency (ER) | payer BC ==
[2020-06-03] MEDS ORDERED: RINGERS SOLUTION,LACTATED 1,000 ML IV ONE (14:12)
--- NOTE | 2020-06-03 14:13 | ER Document Report ---
ED Medical Screen (RME) - General Chief Complaint: Leg Pain Stated Complaint: RIGHT LEG PAIN,FEVER,FAST HEART RATE Time Seen by Provider: 06/03/20 14:05 Primary Care Provider: TAMIA MICHAUD PA-C [Primary Care Provider] - Follow up as needed Notes: Patient presents complaining of difficulty breathing for the past 3 days. Patient states she is had right lower extremity swelling and pain for the past 4 days. Patient reports chest pain that has been sharp that started yesterday. Patient does report mild cough. Patient reports recent Covid exposure at work. Patient states she had a negative rapid test although had a additional Covid test performed today but she is still awaiting results. I have greeted and performed a rapid initial assessment of this patient. A comprehensive ED assessment and evaluation of the patient, analysis of test results and completion of the medical decision making process will be conducted by additional ED providers. TRAVEL OUTSIDE OF THE [place] IN LAST 30 DAYS: No - Related Data Allergies/Adverse Reactions: Penicillins Allergy (Verified 11/13/18 09:22) Past Medical History - Past Medical History Cardiac Medical History: Reports: Hx Hypertension Pulmonary Medical History: Denies: Hx Tuberculosis Neurological Medical History: Denies: Hx Seizures Endocrine Medical History: Reports: Hx Diabetes Mellitus Type 1 Renal/ Medical History: Denies: Hx Peritoneal Dialysis Psychiatric Medical History: Reports: Hx Attention Deficit Hyperactivity Disorder, Hx Bipolar Disorder, Hx Depression Denies: Hx Post Traumatic Stress Disorder, Hx Schizophrenia Traumatic Medical History: Reports: Hx Fractures - 5th toe right foot Past Surgical History: Reports: Hx Appendectomy, Hx Tubal Ligation. Denies: Hx Pacemaker - Immunizations Hx Diphtheria, Pertussis, Tetanus Vaccination: Yes Physical Exam - Vital signs Vitals: Temp Pulse Resp BP Pulse Ox 98.2 F 127 H 20 171/93 H 95 06/03/20 13:40 06/03/20 13:40 06/03/20 13:40 06/03/20 13:40 06/03/20 13:40 - General General appearance: Appears well, Alert Notes: Tachycardia, mild swelling to right lower extremity Course - Vital Signs Vital signs: Temp Pulse Resp BP Pulse Ox 98.2 F 127 H 20 171/93 H 95 06/03/20 13:40 06/03/20 13:40 06/03/20 13:40 06/03/20 13:40 06/03/20 13:40 Doctor's Discharge - Discharge Referrals: TAMIA MICHAUD PA-C [Primary Care Provider] - Follow up as needed
--- NOTE | 2020-06-03 14:54 | RADIOLOGY REPORT (SQ) ---
EXAM DESCRIPTION: CHEST SINGLE VIEW IMAGES COMPLETED DATE/TIME: 06/03/2020 2:46 pm REASON FOR STUDY: cp, cough COMPARISON: 05/02/2018 EXAM PARAMETERS: NUMBER OF VIEWS: One view. TECHNIQUE: Single frontal radiographic view of the chest acquired. RADIATION DOSE: NA LIMITATIONS: None. FINDINGS: LUNGS AND PLEURA: No opacities, masses or pneumothorax. No pleural effusion. MEDIASTINUM AND HILAR STRUCTURES: No masses. Contour normal. HEART AND VASCULAR STRUCTURES: Heart normal in size. Normal vasculature. BONES: No acute findings. HARDWARE: None in the chest. OTHER: No other significant finding. IMPRESSION: NO ACUTE RADIOGRAPHIC FINDING IN THE CHEST. TECHNICAL DOCUMENTATION: JOB ID: [id number] 2010 [employer]- All Rights Reserved Reading location - IP/workstation name: [email or web address]
--- NOTE | 2020-06-03 15:33 | ER Document Report ---
ED General - General Chief Complaint: Leg Pain Stated Complaint: RIGHT LEG PAIN,FEVER,FAST HEART RATE Time Seen by Provider: 06/03/20 14:05 Primary Care Provider: TAMIA MICHAUD PA-C [Primary Care Provider] - Follow up as needed Notes: Patient presents with shortness of breath burning chest pain fatigue loss of taste after a Covid exposure a week ago. Symptom duration 2 days. Negative rapid Covid eye doctor's office, pending test as well. Also complains of transient swelling of the right calf "like a softball" which is now resolved. Sugars have been up and down the patient is a type I diabetic insulin-dependent with no pump. She complains of dehydration as well with a heart rate of 130 [address] doctor's office so she was sent here. On my evaluation she has been here for 2 hours is getting a DVT scan has no IV access. She denies nausea vomiting or signs of DKA. She denies a fever. TRAVEL OUTSIDE OF THE [place] IN LAST 30 DAYS: No - Related Data Allergies/Adverse Reactions: Penicillins Allergy (Verified 11/13/18 09:22) Past Medical History - General Information source: Patient - Social History Smoking Status: Current Every Day Smoker Smoking Education Provided: Yes - The patient ED visit today was directly related to their abuse of tobacco. Family History: Reviewed & Not Pertinent - Past Medical History Cardiac Medical History: Reports: Hx Hypertension Pulmonary Medical History: Denies: Hx Tuberculosis Neurological Medical History: Denies: Hx Seizures Endocrine Medical History: Reports: Hx Diabetes Mellitus Type 1 Renal/ Medical History: Denies: Hx Peritoneal Dialysis Psychiatric Medical History: Reports: Hx Attention Deficit Hyperactivity Disorder, Hx Bipolar Disorder, Hx Depression Denies: Hx Post Traumatic Stress Disorder, Hx Schizophrenia Traumatic Medical History: Reports: Hx Fractures - 5th toe right foot Past Surgical History: Reports: Hx Appendectomy, Hx Tubal Ligation. Denies: Hx Pacemaker - Immunizations Hx Diphtheria, Pertussis, Tetanus Vaccination: Yes Hx Pneumococcal Vaccination: 06/09/08 Review of Systems - Review of Systems Notes: REVIEW OF SYSTEMS GEN: Denies fever, chills, weight loss ENT: Denies sore throat, nasal discharge, ear pain EYES: Denies blurry vision, eye pain, discharge CV: Denies chest pain, palpitations, edema RESP: Denies cough, shortness of breath, wheezing GI: Denies abdominal pain, nausea, vomiting, diarrhea MSK: Denies joint pain/swelling, edema, SKIN: Denies rash, skin lesions LYMPH: Denies swollen glands/lymph nodes NEURO: Denies headache, focal weakness or numbness, dizziness PSYCH: Denies depression, suicidal or homicidal ideation PHYSICAL EXAMINATION General: No acute distress, well-nourished Head: Atraumatic, normocephalic ENT: Mouth normal, oropharynx moist, no exudates or tonsillar enlargement Eyes: Conjunctiva normal, pupils equal, lids normal Neck: No JVD, supple, no guarding CVS: Normal rate, regular rhythm, no murmurs Resp: No resp distress, equal and normal breath sounds bilaterally GI: Nondistended, soft, no tenderness to palpation, no rebound or guarding Ext: No deformities, no edema, normal range of motion in upper and lower ext Back: No CVA or midline TTP Skin: No rash, warm Lymphatic: No lymphadeopathy noted Neuro: Awake, alert. Face symmetric. GCS 15. Physical Exam - Vital signs Vitals: Temp Pulse Resp BP Pulse Ox 98.2 F 127 H 20 171/93 H 95 06/03/20 13:40 06/03/20 13:40 06/03/20 13:40 06/03/20 13:40 06/03/20 13:40 Course - Re-evaluation Re-evalutation: 06/03/20 18:46 Patient presents with resolved leg swelling negative DVT study at bedside good pulses no signs of infection neck fast cellulitis etc. in the setting of diabetes which is coming for high blood sugar but no DKA. There was a significant delay in IV access and labs with multiple times in multiple providers. We eventually agreed to hydrate her orally. She drinks 6 pints of water while in the ED refused the Phenergan suppository we gave her a single dose of insulin for her high sugar and she ruled out for DKA. The patient was reassessed multiple times including most recent 6:45 PM during which she agreed to be discharged home. She will follow-up with her primary care. I have discu ssed with the patient there likely diagnosis, aftercare plan, follow-up plans and my usual and customary return precautions. They verbalized understanding of this. - Vital Signs Vital signs: Temp Pulse Resp BP Pulse Ox 98.2 F 127 H 20 171/93 H 95 06/03/20 13:40 06/03/20 13:40 06/03/20 13:40 06/03/20 13:40 06/03/20 13:40 - Laboratory Results Result Diagrams: 06/03/20 17:10 06/03/20 17:54 Laboratory Results Interpreted: 06/03/20 06/03/20 06/03/20 17:10 17:54 18:19 WBC 14.9 H Absolute Neuts (auto) 9.6 H Sodium 130.7 L Glucose 331 H POC Glucose 352 H AST 40 H Critical Laboratory Results Reviewed: No Critical Results - Radiology Results Critical Radiology Results Reviewed: No Critical Results Procedures - Additional Procedures IV insertion Additional Procedures: IV insertion - Right deep brachial vein. Prepped in normal fashion. Dynamic ultrasound guidance with sterile probe sterile lubricant. IV was obtained and threaded blood was drawn but the IV blew. Site was dressed. Discharge - Discharge Clinical Impression: Diabetes mellitus with hyperglycemia, with long-term current use of insulin Qualifiers: Diabetes mellitus type: due to underlying condition Qualified Code(s): E08.65 - Diabetes mellitus due to underlying condition with hyperglycemia; Z79.4 - intermodal dispatcher (current) use of insulin Condition: Good Disposition: HOME, SELF-CARE Instructions: Hyperglycemia ([facility]) Referrals: TAMIA MICHAUD PA-C [Primary Care Provider] - Follow up as needed
--- NOTE | 2020-06-03 16:06 | RADIOLOGY REPORT (SQ) ---
EXAM DESCRIPTION: VENOUS UNILATERAL LOWER IMAGES COMPLETED DATE/TIME: 06/03/2020 3:57 pm REASON FOR STUDY: RYLE pain, swelling COMPARISON: None. TECHNIQUE: Dynamic and static bravo scale and color images acquired of the right leg venous system. S elected spectral images acquired with additional compression and augmentation maneuvers. The contrala teral common femoral vein and saphenofemoral junction were also imaged. Images stored on PACS. LIMITATIONS: None. FINDINGS: COMMON FEMORAL: Normal phasicity, compression and augmentation. No visualized echogenic ma terial on bravo scale. No defects on color images. FEMORAL: Normal compression and augmentation. No visualized echogenic material on bravo scale. No defe cts on color images. POPLITEAL: Normal compression, augmentation. No visualized echogenic material on bravo scale. No defec ts on color images. CALF VESSELS: Normal compression, augmentation. No visualized echogenic material on braov scale. No de fects on color images. GSV and SSV: Normal compression, augmentation. No visualized echogenic material on bravo scale. No def ects on color images. ANY DEEP VENOUS INSUFFICIENCY: Not evaluated. ANY EVIDENCE OF POPLITEAL CYST: No. OTHER: No other significant finding. CONTRALATERAL COMMON FEMORAL VEIN: Normal phasicity, compression and augmentation. No visualized echogenic material on bravo scale. No de fects on color images. IMPRESSION: 1. NO EVIDENCE OF DVT OR SVT IN THE RIGHT LEG. COMMENT: 1. The results of this examination were discussed with the patient's provider on 0 at 15:45 hours. TECHNICAL DOCUMENTATION: JOB ID: [id number] [employer]- All Rights Reserved Reading location - IP/workstation name: [id number]
[2020-06-03 17:35] LABS: ABSOLUTE BASOPHILS # (AUTO) 0.2 10^3/uL (0.0-0.2); ABSOLUTE EOSINOPHILS # (AUTO) 0.2 10^3/uL (0.0-0.6); ABSOLUTE LYMPHOCYTES (AUTO) 4.2 10^3/uL (0.5-4.7); ABSOLUTE MONOCYTES (AUTO) 0.6 10^3/uL (0.1-1.4); ABSOLUTE NEUT (AUTO) 9.6 10^3/uL (1.7-8.2); BASOPHILS % (AUTO) 1.5 % (0-2); EOSINOPHILS % (AUTO) 1.7 % (0-6); HEMOGLOBIN 14.7 g/dL (12.0-15.5); LYMPHOCYTES % (AUTO) 28.2 % (13-45); MEAN CORPUSCULAR HEMOGLOBIN 31.5 pg (27.0-33.4); MEAN CORPUSCULAR HGB CONC 34.1 g/dL (32.0-36.0); MEAN CORPUSCULAR VOLUME 92 fl (80-97); MONOCYTES % (AUTO) 4.2 % (3-13); PLATELET COUNT 381 10^3/uL (150-450); RED BLOOD COUNT 4.66 10^6/uL (3.72-5.28); RED CELL DISTRIBUTION WIDTH 13.5 % (11.5-14.0); SEGMENTED NEUTROPHILS % (AUTO) 64.4 % (42-78); TOTAL CELLS COUNTED % (AUTO) 100 %; WHITE BLOOD COUNT 14.9 10^3/uL (4.0-10.5)
--- NOTE | 2020-06-03 17:55 | EKG REPORT ---
SEVERITY:- BORDERLINE ECG - SINUS TACHYCARDIA PROBABLE LEFT ATRIAL ABNORMALITY : Confirmed by: Kwaku Krueger MD 03-Jun-2020 17:54:57
[2020-06-03] MEDS ORDERED: INSULIN REG, HUMAN 100 UNIT/ML 3 ML VIAL (PYX) SUBCUT ONE (18:22)
[2020-06-03] MEDS ORDERED: PROMETHAZINE HCL 25 MG SUPP.RECT PR ONE (18:22)
[2020-06-03 18:35] LABS: ALBUMIN 4.3 g/dL (3.5-5.0); ALKALINE PHOSPHATASE 106 U/L (38-126); ANION GAP 9 (5-19); ASPARTATE AMINO TRANSFERASE 40 U/L (14-36); BILIRUBIN,DIRECT 0.1 mg/dL (0.0-0.4); BILIRUBIN,TOTAL 0.7 mg/dL (0.2-1.3); BLOOD UREA NITROGEN 14 mg/dL (7-20); CALCIUM 9.4 mg/dL (8.4-10.2); CARBON DIOXIDE 22 mmol/L (22-30); CHLORIDE 100 mmol/L (98-107); GLUCOSE 331 mg/dL (75-110); POTASSIUM 4.6 mmol/L (3.6-5.0); TOTAL PROTEIN 7.5 g/dL (6.3-8.2)
[2020-06-03 19:16] VITALS: BP 164/88
== END 2020-06-03 19:16 | disposition home or self-care (01) ==
LOC: ER 13:37
DX: E10.65 Type 1 diabetes mellitus with hyperglycemia (principal); Z79.4 Long term (current) use of insulin; M79.604 Pain in right leg; M79.89 Other specified soft tissue disorders; F17.200 Nicotine dependence, unspecified, uncomplicated; I10 Essential (primary) hypertension; Z88.0 Allergy status to penicillin
CPT/HCPCS: 93005; 99285; 36415; 82962; 83735; 85025; 80053; 84484; 93971; 71045; 93010; J1815; J3490